=== PATIENT | female | born 1990 | race Asian ===

== ENCOUNTER 2017-03-02 12:38 | Emergency (ER) | payer OTHER ==
[~2017-03-02] VITALS: Ht 160 cm; Wt 61.4 kg
[2017-03-02 12:44] VITALS: TEMP 36.8; Ht 160 cm; Wt 61.4 kg
[2017-03-02 14:25] VITALS: BP 118/67; PULSE 80; O2SAT 96
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
== END 2017-03-02 14:15 | disposition home or self-care (01) ==
LOC: C.EDB 12:41
DX: S02.5XXA Fracture of tooth (traumatic), initial encounter for closed fracture (principal); S60.512A Abrasion of left hand, initial encounter; V01.90XA Pedestrian on foot injured in collision with pedal cycle, unspecified whether traffic or nontraffic accident, initial encounter